=== PATIENT | male | born 1955 | race American Indian/Alaskan Native ===

== ENCOUNTER 2023-08-03 05:07 | Emergency (ER) | payer MEDICARE, MEDICAID ==
[~2023-08-03] VITALS: Ht 170.2 cm; Wt 94.0 kg
[2023-08-03] MEDS ORDERED: [UNRECOGNIZED DRUG - REMARK] (05:21)
[2023-08-03] MEDS ORDERED: [UNRECOGNIZED DRUG - REMARK] (05:21)
[2023-08-03] MEDS ORDERED: CYCLOBENZAPRINE10 MG PO (06:52)
[2023-08-03] MEDS ORDERED: LIDODERM1 EACH TOP (07:07)
[2023-08-03 07:19] VITALS: BP 140/70
== END 2023-08-03 07:20 | disposition home or self-care (01) ==
LOC: ED 05:07
DX: M43.6 Torticollis (principal); I10 Essential (primary) hypertension; E11.9 Type 2 diabetes mellitus without complications; Z79.4 Long term (current) use of insulin
CPT/HCPCS: 96372; 99283; A9270; J2270; J3360